=== PATIENT | male | born 1975 | race American Indian/Alaskan Native ===

== ENCOUNTER 2019-06-27 01:42 | Emergency (ER) | payer MEDICARE ==
[2019-06-27] MEDS ORDERED: ACETAMINOPHEN 500 MG TAB PO ONE (02:17)
[2019-06-27] MEDS ORDERED: FAMOTIDINE 20 MG TAB PO ONE (02:17)
[2019-06-27] MEDS ORDERED: METOPROLOL TARTRATE 50 MG TAB PO ONE (02:17)
--- NOTE | 2019-06-27 02:21 | Emergency Department Report ---
ED Chest Pain HPI - General Chief Complaint: Chest Pain Stated Complaint: CHEST PAIN Time Seen by Provider: 06/27/19 02:12 Source: patient Mode of arrival: Ambulatory Limitations: No Limitations - History of Present Illness Initial Comments: Mr. Lopez is a 43 yo male with hx of severe obesity who presents with chest pain via EMS. He was at a local fast foot restaurant when police officers asked him to move. He then developed shortness of breath and sharp intermittent central chest pain. The chest pain lasts a second. Intermittent. Denies histo ry of hypertension diabetes or heart disease. MD Complaint: chest pain -: Sudden, This morning Onset: during rest Pain Location: substernal Severity: mild, moderate Quality: sharp Consistency: intermittent Improves With: nothing Worsens With: nothing - Related Data Allergies Allergy/AdvReac Type Severity Reaction Status Date / Time No Known Allergies Allergy Unverified 06/27/19 01:55 Heart Score - HEART Score History: Slightly suspicious EKG: Normal Age: 45-65 Risk factors: No known risk factors Troponin: < normal limit HEART Score: 1 ED Review of Systems ROS: Stated complaint: CHEST PAIN Other details as noted in HPI Comment: All other systems reviewed and negative Constitutional: denies: fever, malaise Respiratory: shortness of breath. denies: cough Cardiovascular: chest pain Gastrointestinal: denies: abdominal pain ED Past Medical Hx - Past Medical History Previous Medical History?: No - Surgical History Past Surgical History?: Yes Additional Surgical History: colostomy - Family History Family history: hypertension - Social History Smoking Status: Never Smoker Substance Use Type: None ED Physical Exam - General Limitations: No Limitations General appearance: alert, in no apparent distress - Head Head exam: Present: atraumatic, normocephalic - Eye Eye exam: Present: normal appearance - ENT ENT exam: Present: mucous membranes moist - Neck Neck exam: Present: normal inspection, full ROM - Respiratory Respiratory exam: Present: normal lung sounds bilaterally. Absent: respiratory distress, wheezes, rales, rhonchi - Cardiovascular Cardiovascular Exam: Present: regular rate, normal rhythm, normal heart sounds. Absent: systolic murmur, diastolic murmur, rubs, gallop - GI/Abdominal GI/Abdominal exam: Present: soft, normal bowel sounds. Absent: distended, tenderness, guarding, rebound - Rectal Rectal exam: Present: deferred - Extremities Exam Extremities exam: Present: normal inspection - Neurological Exam Neurological exam: Present: alert, oriented X3 - Psychiatric Psychiatric exam: Present: normal affect, normal mood - Skin Skin exam: Present: warm, dry, intact, normal color. Absent: rash ED Course Vital Signs 06/27/19 06/27/19 06/27/19 01:48 01:49 02:20 Temperature 98.2 F Pulse Rate 81 92 H 89 Respiratory 20 18 20 Rate Blood Pressure 149/91 Blood Pressure 123/84 [left arm] O2 Sat by Pulse 95 100 78 L Oximetry 06/27/19 06/27/19 06/27/19 02:30 02:49 02:52 Temperature Pulse Rate 82 96 H 86 Respiratory 20 19 Rate Blood Pressure 123/84 139/85 Blood Pressure [left arm] O2 Sat by Pulse 93 95 Oximetry 06/27/19 06/27/19 06/27/19 03:00 03:15 03:30 Temperature Pulse Rate 83 78 75 Respiratory 16 20 19 Rate Blood Pressure 144/79 139/85 119/72 Blood Pressure [left arm] O2 Sat by Pulse 96 97 98 Oximetry 06/27/19 06/27/19 06/27/19 03:45 04:01 04:15 Temperature Pulse Rate 64 63 65 Respiratory 22 19 22 Rate Blood Pressure 119/72 119/72 119/72 Blood Pressure [left arm] O2 Sat by Pulse 89 89 Oximetry 06/27/19 06/27/19 04:30 04:45 Temperature Pulse Rate 60 60 Respiratory 19 17 Rate Blood Pressure 123/71 123/71 Blood Pressure [left arm] O2 Sat by Pulse Oximetry ED Medical Decision Making - Lab Data Result diagrams: 06/27/19 02:22 06/27/19 02:22 - EKG Data EKG shows normal: sinus rhythm, axis, intervals, QRS complexes, ST-T waves Rate: normal - EKG Data Interpretation: normal EKG - Radiology Data Radiology results: report reviewed Chest radiograph: No acute findings according to radiology impression - Medical Decision Making Ms. Ramires male presents with chest pain shortness of breath after stressful event. Differential denies most includes: Acute chronic syndrome, pulmonary embolism, PVC, bronchospasm, pneumonia, anxiety reaction. After workup performed in the emergency department, pulmonary embolism ACS PNA not detected. PERC negative for PE troponin x 2 negative. given referral to lug loader. HEART score 1. Cardiology referral sent to our local group. Initial pulse oximetry 98%. Pulse oximetry documented to be 89% while patient is sleeping. I suspect sleep apnea. Critical care attestation.: If time is entered above; I have spent that time in minutes in the direct care of this critically ill patient, excluding procedure time. ED Disposition Clinical Impression: Chest pain Disposition: DC-01 TO HOME OR SELFCARE Is pt being admited?: No Does the pt Need Aspirin: No Condition: Stable Instructions: Chest Pain (ED) Additional Instructions: It is strongly recommended that you obtain a sleep study to rule out sleep apnea. Referrals: FELIPE KING MD [Staff Physician] - 2-3 Days
--- NOTE | 2019-06-27 02:26 | XRay Report ---
CHEST 1 VIEW INDICATION: Chest Pain. COMPARISON: None FINDINGS: Support devices: None. Heart: Within normal limits. Lungs/Pleura: No acute air space or interstitial disease. Additional findings: None. IMPRESSION: 1. No acute findings. Signer Name: Hank Almodovar MD Signed: 06/27/2019 2:22 AM Workstation Name: [id number]
[2019-06-27 02:41] LABS: Basophils # (Auto) 0.1 K/mm3 (0.0-0.1); Basophils % (Auto) 0.9 % (0.0-1.8); Eosinophils # (Auto) 0.3 K/mm3 (0.0-0.4); Eosinophils % (Auto) 4.5 % (0.0-4.3); Hematocrit 46.4 % (35.5-45.6); Hemoglobin 15.1 gm/dl (11.8-15.2); Lymphocytes # (Auto) 1.5 K/mm3 (1.2-5.4); Lymphocytes % (Auto) 20.3 % (13.4-35.0); Mean Corpuscular HGB Conc 33 % (32-34); Mean Corpuscular Volume 84 fl (84-94); Monocytes # (Auto) 0.7 K/mm3 (0.0-0.8); Monocytes % (Auto) 9.1 % (0.0-7.3); Platelet Count 331 K/mm3 (140-440); Red Blood Count 5.55 M/mm3 (3.65-5.03)
[2019-06-27 03:11] LABS: BUN/Creatinine Ratio 9; Blood Urea Nitrogen 11 mg/dL (9-20); Calcium 9.4 mg/dL (8.4-10.2); Hemolysis Index 27
[2019-06-27 05:11] VITALS: BP 123/71
== END 2019-06-27 05:00 | disposition home or self-care (01) ==
LOC: ED 01:42
DX: R07.9 Chest pain, unspecified (principal); E66.9 Obesity, unspecified; Z68.43 Body mass index [BMI] 50.0-59.9, adult; Z98.890 Other specified postprocedural states
CPT/HCPCS: 36415; 71045; 80048; 84484; 85025; 93005; 93010